=== PATIENT | female | born 1990 | race Caucasian/White ===

== ENCOUNTER 2016-06-23 05:47 | Emergency (ER) | payer OTHER ==
--- NOTE | 2016-06-23 07:29 | DIAGNOSTIC IMAGING REPORT ---
PROCEDURE: CT ABDOMEN/PELVIS W/O CONTRAST INDICATION: FLANK PAIN TECHNIQUE: Axial CT images were obtained through the abdomen and pelvis without IV contrast. Coronal and sagittal reformations were created. COMPARISON: None. FINDINGS: Clear lung bases. Normal sized heart. No hiatal hernia. The unenhanced appearance of the liver, gallbladder, adrenal glands, kidneys, pancreas and spleen is normal. The abdominal aorta is normal in its course and caliber. There are no suspicious calcifications, retroperitoneal adenopathy or masses. The stomach, upper bowel loops, and mesentery are normal. Intact anterior abdominal wall. No free fluid or inflammation. Mild diffuse urinary bladder wall thickening. No significant perivesicular inflammation or stone. The unenhanced appearance of the uterus, ovaries, pelvic vessels, and pelvic bowel loops is normal. Normal appendix. No suspicious calcifications, free pelvic fluid or mass. Intact osseous structures. IMPRESSION: 1. No evidence of obstructive uropathy. 2. Minor urinary bladder wall thickening raising possibility of cystitis or under distention of the urinary bladder. 3. Findings discussed with Dr. Haile in the emergency room. All CT scans at this facility use dose modulation, iterative reconstruction, and/or weight-based dosing when appropriate to reduce radiation dose to as low as reasonably achievable.
--- NOTE | 2016-07-06 00:17 | ED MAR SUMMARY ---
..... Medication Administration Record [facility] [address] [place] [address] Patient: IMAN MANRIQUE Visit ID: [id number] 25y, F Weight: 81.6 kg Height/Length: 63 in BMI: 31.9 ALLERGIES: Penicillins Start 06:28 06/23/2016 Joanne Michaud RArline, Stop 07:37 06/23/2016 Marian Baltazar R.N. Medication Administered: IV NS (SALINE), Dose: IV Fluids, Rate: 1000 mL/hr, Dispensed: 1000 mL bag, Site: #1 right AC. Medication Ordered: IV NS : initial bolus none -, then 1000 mL/hr for X1 (NOW). Given 06:29 06/23/2016 Joanne Michaud R.N. Medication Administered: ZOFRAN [IVP] (ONDANSETRON HCL), Dose: 4 mg IVP over 30 second(s), Site: #1 right AC. Medication Ordered: Zofran IV 4 mg (NOW). Given 06:30 06/23/2016 Joanne Michaud RBeauNBeau Medication Administered: TORADOL [IVP], Dose: 30 mg IVP over 1 minute(s), Site: #1 right AC. Medication Ordered: Toradol IV 30 mg (NOW).
--- NOTE | 2016-07-06 00:17 | ED DISCHARGE INSTRUCTIONS ---
Patient: IMAN MANRIQUE General Instructions VisitID: [id number] [place] [address] 25y, F Registration Date/Time: 06/23/2016 Chronic cystitis. No hematuria present. INSTRUCTIONS Drink plenty of fluids. Your Current Medications: CONTINUE TAKING THE FOLLOWING MEDICATIONS: HydrOXYzine HCl Oral. TraZODone HCl Oral : prn. Zofran Oral : Last: today at 0130. Prescription Medications: Hydrocodone/APAP 5mg/325mg: take 1 to 2 orally every 6 hours as needed for pain. Dispense fifteen (15). No refills. Zofran (orally disintegrating tablets) 4 mg: take 1 orally every 6 hours as needed for nausea and vomiting. Dispense ten (10). No refill. Substitution is permissible. Baclofen 10 mg: take 1 orally every 8 hours. Dispense thirty (30). No refills. Follow-up: Screening today revealed the patient's blood pressure to be in the normal range. Follow-up with: Napoleon Olmedo MD, Urology, , [address] [facility], [address] Follow up in about four days. Call for an appointment. ADDITIONAL INFORMATION Bladder Infection,Female (Adult) A bladder infection ("cystitis" or "UTI") usually causes a constant urge to urinate and a burning when passing urine. Urine may be cloudy, smelly or dark. There may be pain in the lower abdomen. A bladder infection occurs when bacteria from the vaginal area enter the bladder opening (urethra). This can occur from sexual intercourse, wearing tight clothing, dehydration and other factors. Home Care: Drink lots of fluids (at least 6-8 glasses a day, unless you must restrict fluids for other medical reasons). This will force the medicine into your urinary system and flush the bacteria out of your body. Avoid sexual intercourse until your symptoms are gone. Avoid caffeine, alcohol and spicy foods. These can irritate the bladder. A bladder infection is treated with antibiotics. You may also be given Pyridium (generic = phenazopyridine) to reduce the burning sensation. This medicine will cause your urine to become a bright orange color. The orange urine may stain clothing. You may wear a pad or panty-liner to protect clothing. Preventing Future Infections: Always wipe from front to back after a bowel movement. Keep the genital area clean and dry. Drink plenty of fluids each day to avoid dehydration. Both sexual partners should wash before intercourse. Urinate right after intercourse to flush out the bladder. Wear cotton underwear and cotton-lined panty hose; avoid tight-fitting pants. If you are on control pills and are having frequent bladder infections, discuss with your doctor. Follow Up: Return to this facility or see your doctor if ALL symptoms are not gone after three days of treatment. Get Prompt Medical Attention if any of the following occur: Fever of 100.4F (38C) or higher, or as directed by your healthcare provider No improvement by the third day of treatment Increasing back or abdominal pain Repeated vomiting; unable to keep medicine down Weakness, dizziness or fainting Vaginal discharge Pain, redness or swelling in the labia (outer vaginal area) Ondansetron Oral disintegrating tablet What is this medicine? ONDANSETRON (on HANNAH se ana lilia) is used to treat nausea and vomiting caused by chemotherapy. It is also used to prevent or treat nausea and vomiting after surgery. How should I use this medicine? These tablets are made to dissolve in the mouth. Do not try to push the tablet through the foil backing. With dry hands, peel away the foil backing and gently remove the tablet. Place the tablet in the mouth and allow it to dissolve, then swallow. While you may take these tablets with water, it is not necessary to do so. Talk to your osha inspector regarding the use of this medicine in children. Special care may be needed. What side effects may I notice from receiving this medicine? Side effects that you should report to your doctor or health daycare worker as soon as possible: allergic reactions like skin rash, itching or hives, swelling of the face, lips, or tongue breathing problems dizziness fast or irregular heartbeat feeling faint or lightheaded, falls fever and chills swelling of the hands and feet tightness in the chest Side effects that usually do not require medical attention (report to your doctor or health daycare worker if they continue or are bothersome): constipation or diarrhea headache What may interact with this medicine? Do not take this medicine with any of the following medications: -apomorphine -cisapride -dofetilide -dronedarone -pimozide -thioridazine -ziprasidone This medicine may also interact with the following medications: -carbamazepine -phenytoin -rifampicin -tramadol -other medicines that prolong the QT interval (cause an abnormal heart rhythm) What if I miss a dose? If you miss a dose, take it as soon as you can. If it is almost time for your next dose, take only that dose. Do not take double or extra doses. Where should I keep my medicine? Keep out of the reach of children. Store between 2 and 30 degrees C (36 and 86 degrees F). Throw away any unused medicine after the expiration date. What should I tell my health care provider before I take this medicine? They need to know if you have any of these conditions: heart disease history of irregular heartbeat liver disease low levels of magnesium or potassium in the blood an unusual or allergic reaction to ondansetron, granisetron, other medicines, foods, dyes, or preservatives or trying to get breast-feeding What should I watch for while using this medicine? Check with your doctor or health daycare worker as soon as you can if you have any sign of an allergic reaction. You have been given the following additional information: Bladder Infection, Female (Adult) Ondansetron Oral disintegrating tablet (Electronically signed by Anson Haile Dr. 06/23/2016 7:38)
--- NOTE | 2016-07-06 00:17 | ED NURSING NOTES ---
Clinical Report - Nurses [facility] [address] [place] [address] 06/23/2016 5:48 Patient: IMAN MANRIQUE TRIAGE Triage time 05:55. Acuity: LEVEL 4. Chief Complaint: PAINFUL URINATION, URGENCY and FREQUENCY and LOW BACK PAIN. --06:01 Joanne Michaud R.N. 05:55 06/23/16. BP: 122/72. HR: 87. RR: 16. O2 saturation: 97% on room air. Temp: 98 F (oral). Mendez-Luna pain scale: 2/10. --06:01 Joanne Michaud R.N. Weight: 81.6 kg stated. Height/Length: 63 inches Per Patient. BMI: 31.9. --06:00 Joanne Michaud R.N. Medications TraZODone HCl Oral, as needed. --05:58 Joanne Michaud R.N. HydrOXYzine HCl Oral. --05:59 Joanne Michaud R.N. Zofran Oral, last dose today at 0130. --05:59 Joanne Michaud R.N. Allergies Penicillins. --05:58 Joanne Michaud R.N. History Arrived by private vehicle. Primary physician ([facility]). ( Pt has had ankle surgery on Apr 20, states she has had urinary pain since then but today pain got worse.). Onset. (about 3 months ago). No hematuria. 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 PAST MEDICAL HX: Immunizations: up-to-date. Last normal menstrual period was 1 week ago. No contraception. SOCIAL HX: Heavy tobacco smoker (cigarette)- less than 1 pack per day. Regular alcohol use. History of drug use: marijuana. NUTRITIONAL RISK ASSESSMENT: The nutritional risk assessment revealed no deficiencies. --06:01 Joanne Michaud R.N. PROBLEMS: Fibula Fracture. Gastroenteritis. LNMP - Last Normal Menstrual Period. UTI - Urinary Tract Infection. Pyelonephritis. --06:00 Joanne Michaud R.N. ADDITIONAL SURGERIES: Ankle. --06:00 Joanne Michaud R.N. Interventions ID band on patient. To treatment room. --06: Joanne Michaud R.N. PHYSICAL ASSESSMENT Ambulatory to room. GENERAL / NEURO / PSYCH: Alert. Oriented X 4. Appears anxious. HEENT: Mucous membranes are pink. RESPIRATORY: Respirations not labored. CVS: Capillary refill less than 2 seconds. SKIN: Skin is warm and dry. --06: Joanne Michaud R.N. NURSING PROGRESS NOTES Head of bed elevated. Two patient identifiers checked. Call light placed in reach. Side rails up x 1. Bed placed in lowest position. Brakes of bed on. --06: Joanne Michaud R.N. Patient ready for evaluation- chart flagged. --06:01 Joanne Michaud R.N. Patient ID band checked for patient name and birthdate: patient confirmed urine collected with return of yellow-colored urine; sample sent to lab. Specimen labeled in the presence of the patient. --06:05 Joanne Michaud R.N. 06:24 06/23/2016 Site #1 started via IV in the right antecubital space with an 20g angiocath, with aseptic technique; one attempt. Blood drawn: rainbow set. Labeled in the presence of the patient and sent to the lab. Saline lock flushed with saline. --06:24 Prosper Vera R.N. 06:28 06/23/2016 Started bag #1 1000 mL IV Fluids IV NS (Saline); at 1000 mL/hr via site #1 via IV pump. Allergies verified and confirmed 5 rights. IV patency established. IV site checked: no pain, redness, or swelling. IV flushed thoroughly pre- and post-medication administration. --06:30 Joanne Michaud R.N. 06:29 06/23/2016 Zofran (Ondansetron HCl) IVP 4 mg given over 30 second(s) via site #1. Allergies verified and confirmed 5 rights. IV patency established. IV site checked: no pain, redness, or swelling. IV flushed thoroughly pre- and post-medication administration. IVP given by RN. --06:30 Joanne Michaud R.N. 06:30 06/23/2016 Toradol IVP 30 mg given over 1 minute(s) via site #1. Allergies verified and confirmed 5 rights. IV patency established. IV site checked: no pain, redness, or swelling. IV flushed thoroughly pre- and post-medication administration. IVP given by RN. --06:30 Joanne Michaud R.N. 06:54 06/23/16. BP: 96/66. HR: 91. RR: 15. O2 saturation: 97% on room air. Mendez-Luna pain scale: 10. --06:55 Joanne Michaud R.N. Patient informed about reason for wait and about plan of care. Patient waiting for CT results. --06:55 Joanne Michaud R.N. DISPOSITION / DISCHARGE 08:00 06/23/16. BP: 100/40. HR: 77. RR: 18. O2 saturation: 96%. Temp: 98.4 F. Pain level now 08/17. --08:01 Marian Baltazar R.N. Departure time: 07:45 Jun 23 2016. Condition at departure: improved. No learning barriers present. Discharge instructions provided and reviewed with the patient. Reviewed warnings. Reviewed medication(s). Treatments reviewed. Reviewed referrals. Patient and parent verbalized understanding. Written instructions provided in Bengali. The patient was discharged home and accompanied by parent. She left the Emergency Department ambulatory and via private vehicle. Parent driving. --08:01 Marian Baltazar R.N. 07:37 06/23/2016 Site #1 removed upon discharge. Catheter intact. Pressure dressing applied. --08:02 Marian Baltazar R.N. 07:37 06/23/2016 IV Fluids IV NS Discontinued: bag #1 infused upon discharge. Total amount infused: 1000 mL. IV patency established. IV site checked: no pain, redness, or swelling. IV flushed thoroughly. --08:02 Marian Baltazar R.N. Locked/Released at 07/06/2016 0:17 by Joanne Michaud R.N.
--- NOTE | 2016-07-06 00:17 | ED MED RECONCILIATION SUMMARY ---
Patient: IMAN MANRIQUE Medication Reconciliation Report [facility] VisitID: [id number] [address] [place] [address] 25y, F Registration Date/Time: 06/23/2016 Weight: 81.6 kg Height/Length: 63 in. BMI: 31.9 ALLERGIES: Penicillins The patient's Home Medications are listed below: CONTINUE TAKING THE FOLLOWING MEDICATIONS: HydrOXYzine HCl Oral TraZODone HCl Oral Zofran Oral, last dose: today at 0130 The source(s) of the original Home Medication information: Not obtained. The following Medications were given to the patient in the Emergency Department: IV NS IV Fluids bolus 0, then 1000 mL/hr, administered: 06/23/2016 6:28:00 AM Zofran [IVP] IVP 4 mg, administered: 06/23/2016 6:29:00 AM Toradol [IVP] IVP 30 mg, administered: 06/23/2016 6:30:00 AM The following Medications were prescribed to the patient: Hydrocodone/APAP 5mg/325mg: take 1 to 2 orally every 6 hours as needed for pain. Dispense fifteen (15). No refills. -- Anson Haile Dr. Zofran (orally disintegrating tablets) 4 mg: take 1 orally every 6 hours as needed for nausea and vomiting. Dispense ten (10). No refill. Substitution is permissible. -- Anson Haile Dr. Baclofen 10 mg: take 1 orally every 8 hours. Dispense thirty (30). No refills. -- Anson Haile Dr.
--- NOTE | 2016-07-06 00:17 | ED ORDER SUMMARY ---
..... Patient: IMAN MANRIQUE OrderSheet [facility] VisitID: [id number] [address] [place] [address] 25y, F Registration Date/Time: 06/23/2016 ORDER SHEET Weight: 81.6 kg (stated) Allergies: Penicillins GENERAL ORDERS: CBC w Diff Urgent (06:13 06/23/2016 Ismael Fonseca) (Ack 6:15 AMcQuoid ER Tech1) (6:31 RCollier R.N.) CMP Urgent (06:13 06/23/2016 Ismael Fonseca) (Ack 6:15 AMcQuoid ER Tech1) (6:31 RCollier R.N.) UA-Culture if indicated Urgent (06:13 06/23/2016 Ismael Fonseca) (Ack 6:15 AMcQuoid ER Tech1) (6:15 AMcQuoid ER Tech1) Urine Urgent (06:06/23/2016 Ismael Fonseca) (Ack 6:15 AMcQuoid ER Tech1) (6:15 AMcQuoid ER Tech1) CT Abd/Pel wo Cont (Left) Urgent (06:32 06/23/2016 Ismael Fonseca) (Ack 6:46 ALawrence ER Tech1) (6:54 Tamika) MEDICATION ORDERS: IV FLUIDS: IV NS : initial bolus none -, then 1000 mL/hr for X1 (NOW) (06:12 06/23/2016 Ismael Fonseca) (Ack 6:21 RCollier R.N.) (6:30 RCollier R.N.) Toradol IV 30 mg (NOW) (06:12 06/23/2016 Ismael Fonseca) (Ack 6:21 RCollier R.N.) (6:30 RCollier R.N.) Zofran IV 4 mg (NOW) (06:06/23/2016 Ismael Fonseca) (Ack 6:21 RCollier R.N.) (6:30 RCollier R.N.) ORDER SHEET NOTES: [Electronically signed by Anson Haile Dr. (07:38 06/23/2016)] [Electronically signed by Joanne Michaud R.N. (00:17 07/06/2016)] [Electronically locked/signed by Joanne Mihcaud R.N. (00:07/06/2016)]
--- NOTE | 2016-07-06 00:17 | ED MED RECONCILIATION SUMMARY ---
Patient: IMAN MANRIQUE Medication Reconciliation Report [facility] VisitID: [id number] [address] [place] [address] 25y, F Registration Date/Time: 06/23/2016 Weight: 81.6 kg Height/Length: 63 in. BMI: 31.9 ALLERGIES: Penicillins The patient's Home Medications are listed below: CONTINUE TAKING THE FOLLOWING MEDICATIONS: HydrOXYzine HCl Oral TraZODone HCl Oral Zofran Oral, last dose: today at 0130 The source(s) of the original Home Medication information: Not obtained. The following Medications were given to the patient in the Emergency Department: IV NS IV Fluids bolus 0, then 1000 mL/hr, administered: 06/23/2016 6:28:00 AM Zofran [IVP] IVP 4 mg, administered: 06/23/2016 6:29:00 AM Toradol [IVP] IVP 30 mg, administered: 06/23/2016 6:30:00 AM The following Medications were prescribed to the patient: Hydrocodone/APAP 5mg/325mg: take 1 to 2 orally every 6 hours as needed for pain. Dispense fifteen (15). No refills. -- Anson Haile Dr. Zofran (orally disintegrating tablets) 4 mg: take 1 orally every 6 hours as needed for nausea and vomiting. Dispense ten (10). No refill. Substitution is permissible. -- Anson Haile Dr. Baclofen 10 mg: take 1 orally every 8 hours. Dispense thirty (30). No refills. -- Anson Haile Dr.
--- NOTE | 2016-07-06 00:17 | ED CLINICAL REPORT ---
Clinical Report - Physicians/Mid Levels [facility] [address] [place] [address] 06/23/2016 5:48 Patient: IMAN MANRIQUE Time Seen: 0557; initial patient contact. Arrived- By private vehicle. Historian- patient. HISTORY OF PRESENT ILLNESS Chief Complaint: ABDOMINAL PAIN and FLANK PAIN. At its maximum, severity described as moderate. When seen in the E.D., severity described as moderate. Modifying factors. Not worsened by anything. Not relieved by anything. This started today and is still present. It was abrupt in onset. It is described as sharp and it is described as located in the left pelvis and the left flank and radiating to the groin. The patient has had nausea. No loss of appetite, vomiting or diarrhea. Similar symptoms previously: None. Recent medical care: Not recently seen/assessed. REVIEW OF SYSTEMS No constipation, difficulty with urination, urinary frequency, missed periods or fever. No chills. She has had pain on urination. All systems otherwise negative, except as recorded above. PAST HISTORY Fibula Fracture. Gastroenteritis. UTI - Urinary Tract Infection. Pyelonephritis. SURGERIES: Ankle. Medications: Zofran Oral, last dose today at 0130. HydrOXYzine HCl Oral. TraZODone HCl Oral, as needed. Allergies: Penicillins. SOCIAL HISTORY Current every day smoker. Regular alcohol use. History of drug use: marijuana. ADDITIONAL NOTES The nursing notes have been reviewed with agreement regarding the chief complaint, PMH and patient medications and allergies. PHYSICAL EXAM Vital Signs: 06/23/2016 05:55 BP: 122/72. HR: 87. RR: 16. O2 saturation: 97%. Temp: 98 F. Mendez-Luna pain scale: 2/10. Have been reviewed as normal. Appearance: Alert. Oriented X3. No acute distress. ENT: Dry mucous membranes present. CVS: Normal heart rate and rhythm. Heart sounds normal. Respiratory: No respiratory distress. Breath sounds normal. Abdomen: Soft. Moderate tenderness in the left side of the abdomen with guarding present. No rebound tenderness. Bowel sounds normal. No mass. Back: Moderate CVA tenderness on the left. Skin: Normal skin color. Neuro: Oriented X 3. LABS, X-RAYS, AND EKG Abdominal CT: 1. No evidence of obstructive uropathy. 2. Minor urinary bladder wall thickening raising possibility of cystitis or under distention of the urinary bladder. Study type: renal stone evaluation. Abdominal CT performed without contrast. Prior studies were not available for comparison. The study was interpreted by the radiologist and discussed with the radiologist. Interpretation time: 07:32. Laboratory Tests: UA-Culture if indicated: (KASSIDY: 06/23/2016 06:00) ( [facility] 06/23/2016 06:45) Final results Test Result Flag Units (Reference) URINE COLOR YELLOW URINE APPEARANCE CLEAR URINE GLUCOSE NEGATIVE (NEGATIVE) URINE BILIRUBIN NEGATIVE (NEGATIVE) URINE KETONE NEGATIVE (NEGATIVE) URINE SPECIFIC GRAVITY <= 1.005 L (1.010-1.030) URINE PH 7.0 (5.0-8.0) URINE PROTEIN NEGATIVE (NEGATIVE) URINE UROBILINOGEN 0.2 EU/dL (0.2-1.0) URINE NITRITE NEGATIVE (NEGATIVE) URINE BLOOD NEGATIVE (NEGATIVE) URINE LEUK ESTERASE NEGATIVE (NEGATIVE) URINE RBC 0-1 rbc/hpf (0-1) URINE WBC 0-1 wbc/hpf (0-1) URINE EPITHELIAL CELLS 0-1 EPI/hpf (0-5) URINE BACTERIA TRACE (<1+) (NONE SEEN) URINE COMMENT CULT NOT INDICATED URINE CULTURES ARE SET-UP BASED ON THE FOLLOWING CRITERIA:POSITIVE NITRITEPOSITIVE LEUKOCYTE ESTERASEGREATER THAN 10 WHITE BLOOD CELLSMODERATE (2+) OR GREATER BACTERIA Urine: (KASSIDY: 06/23/2016 06:00) ( [facility] 06/23/2016 06:26) Final results Test Result Flag Units (Reference) URINE NEGATIVE CBC w Diff: (KASSIDY: 06/23/2016 06:20) ( [facility] 06/23/2016 06:35) Final results Test Result Flag Units (Reference) WHITE BLOOD COUNT 7.9 K/uL (4.5-11.5) RED BLOOD COUNT 4.35 M/uL (4.00-5.20) HEMOGLOBIN 14.1 gm/dL (12.0-16.0) HEMATOCRIT 39.5 % (36.0-46.0) MEAN CELL VOLUME 91 fL (80-100) MEAN CORPUSCULAR HGB 32 pg (26-34) MEAN CORPUSCULAR HGB CONC 36 g/dL (31-37) RED CELL DISTRIBUTION WIDTH 12.7 % (11.6-14.8) PLATELET COUNT 296 K/uL (150-400) NEUTROPHIL % 74.5 % (50-75) LYMPH % 19.3 L % (25-40) MONO % 4.4 % (3-14) EOSINOPHIL % 1.4 % (0-4) BASOPHIL % 0.4 % (0-2) CMP: (KASSIDY: 06/23/2016 06:20) ( MsgRcvd 06/23/2016 07:11) Final results Test Result Flag Units (Reference) GLUCOSE 113 H mg/dL (70-110) BUN 4 L mg/dL (7-18) CREATININE 0.7 mg/dL (0.6-1.3) Estimated GFR >60 mL/min Estimated GFR- >60 mL/min Note: Persistent reduction over 3 months in eGFR<60 mL/min/1.73 m2 defines CKD. Patients with eGFR values>=60 mL/min/1.73 m2 may also have CKD if evidence ofpersistent proteinuria. Additional information may be foundat www.kidney.org. SODIUM 146 H mmol/L (136-145) POTASSIUM 3.5 mmol/L (3.5-5.1) CHLORIDE 106 mmol/L (98-107) CARBON DIOXIDE 26 mmol/L (21-32) CALCIUM 8.3 L mg/dL (8.5-10.1) TOTAL PROTEIN 7.7 g/dL (6.4-8.2) ALBUMIN 4.1 g/dL (3.3-5.0) BILIRUBIN, TOTAL 0.5 mg/dL (0.0-1.0) ALKALINE PHOSPHATASE 67 U/L (46-116) AST (SGOT) 14 L U/L (15-37) ALT (SGPT) 23 U/L (12-78) . CLINICAL IMPRESSION Chronic cystitis. No hematuria present. INSTRUCTIONS Drink plenty of fluids. Your Current Medications: CONTINUE TAKING THE FOLLOWING MEDICATIONS: HydrOXYzine HCl Oral. TraZODone HCl Oral : prn. Zofran Oral : Last: today at 0130. Prescription Medications: Hydrocodone/APAP 5mg/325mg: take 1 to 2 orally every 6 hours as needed for pain. Dispense fifteen (15). No refills. Zofran (orally disintegrating tablets) 4 mg: take 1 orally every 6 hours as needed for nausea and vomiting. Dispense ten (10). No refill. Substitution is permissible. Baclofen 10 mg: take 1 orally every 8 hours. Dispense thirty (30). No refills. Follow-up: Screening today revealed the patient's blood pressure to be in the normal range. Follow-up with: Napoleon Olmedo MD, Urology, , [address] [facility] [address] Follow up in about four days. Call for an appointment. (Electronically signed by Anson Haile Dr. 06/23/2016 7:38)
--- NOTE | 2016-07-06 00:17 | ED MAR SUMMARY ---
..... Medication Administration Record [facility] [address] [place] [address] Patient: IMAN MANRIQUE Visit ID: [id number] 25y, F Weight: 81.6 kg Height/Length: 63 in BMI: 31.9 ALLERGIES: Penicillins Start 06:28 06/23/2016 Joanne Michaud RArline, Stop 07:37 06/23/2016 Marian Baltazar R.N. Medication Administered: IV NS (SALINE), Dose: IV Fluids, Rate: 1000 mL/hr, Dispensed: 1000 mL bag, Site: #1 right AC. Medication Ordered: IV NS : initial bolus none -, then 1000 mL/hr for X1 (NOW). Given 06:29 06/23/2016 Joanne Michaud R.N. Medication Administered: ZOFRAN [IVP] (ONDANSETRON HCL), Dose: 4 mg IVP over 30 second(s), Site: #1 right AC. Medication Ordered: Zofran IV 4 mg (NOW). Given 06:30 06/23/2016 Joanne Michaud RBeauNBeau Medication Administered: TORADOL [IVP], Dose: 30 mg IVP over 1 minute(s), Site: #1 right AC. Medication Ordered: Toradol IV 30 mg (NOW).
--- NOTE | 2016-07-06 00:17 | ED DISCHARGE INSTRUCTIONS ---
Patient: IMAN MARNIQUE General Instructions [facility] VisitID: [id number] [place] [address] 25y, F Registration Date/Time: 06/23/2016 Chronic cystitis. No hematuria present. INSTRUCTIONS Drink plenty of fluids. Your Current Medications: CONTINUE TAKING THE FOLLOWING MEDICATIONS: HydrOXYzine HCl Oral. TraZODone HCl Oral : prn. Zofran Oral : Last: today at 0130. Prescription Medications: Hydrocodone/APAP 5mg/325mg: take 1 to 2 orally every 6 hours as needed for pain. Dispense fifteen (15). No refills. Zofran (orally disintegrating tablets) 4 mg: take 1 orally every 6 hours as needed for nausea and vomiting. Dispense ten (10). No refill. Substitution is permissible. Baclofen 10 mg: take 1 orally every 8 hours. Dispense thirty (30). No refills. Follow-up: Screening today revealed the patient's blood pressure to be in the normal range. Follow-up with: Napoleon Olmedo MD, Urology, , [address] [facility], [id number] Follow up in about four days. Call for an appointment. ADDITIONAL INFORMATION Bladder Infection,Female (Adult) A bladder infection ("cystitis" or "UTI") usually causes a constant urge to urinate and a burning when passing urine. Urine may be cloudy, smelly or dark. There may be pain in the lower abdomen. A bladder infection occurs when bacteria from the vaginal area enter the bladder opening (urethra). This can occur from sexual intercourse, wearing tight clothing, dehydration and other factors. Home Care: Drink lots of fluids (at least 6-8 glasses a day, unless you must restrict fluids for other medical reasons). This will force the medicine into your urinary system and flush the bacteria out of your body. Avoid sexual intercourse until your symptoms are gone. Avoid caffeine, alcohol and spicy foods. These can irritate the bladder. A bladder infection is treated with antibiotics. You may also be given Pyridium (generic = phenazopyridine) to reduce the burning sensation. This medicine will cause your urine to become a bright orange color. The orange urine may stain clothing. You may wear a pad or panty-liner to protect clothing. Preventing Future Infections: Always wipe from front to back after a bowel movement. Keep the genital area clean and dry. Drink plenty of fluids each day to avoid dehydration. Both sexual partners should wash before intercourse. Urinate right after intercourse to flush out the bladder. Wear cotton underwear and cotton-lined panty hose; avoid tight-fitting pants. If you are on control pills and are having frequent bladder infections, discuss with your doctor. Follow Up: Return to this facility or see your doctor if ALL symptoms are not gone after three days of treatment. Get Prompt Medical Attention if any of the following occur: Fever of 100.4F (38C) or higher, or as directed by your healthcare provider No improvement by the third day of treatment Increasing back or abdominal pain Repeated vomiting; unable to keep medicine down Weakness, dizziness or fainting Vaginal discharge Pain, redness or swelling in the labia (outer vaginal area) Ondansetron Oral disintegrating tablet What is this medicine? ONDANSETRON (on HANNAH se ana lilia) is used to treat nausea and vomiting caused by chemotherapy. It is also used to prevent or treat nausea and vomiting after surgery. How should I use this medicine? These tablets are made to dissolve in the mouth. Do not try to push the tablet through the foil backing. With dry hands, peel away the foil backing and gently remove the tablet. Place the tablet in the mouth and allow it to dissolve, then swallow. While you may take these tablets with water, it is not necessary to do so. Talk to your silo operator regarding the use of this medicine in children. Special care may be needed. What side effects may I notice from receiving this medicine? Side effects that you should report to your doctor or health overnight caregiver as soon as possible: allergic reactions like skin rash, itching or hives, swelling of the face, lips, or tongue breathing problems dizziness fast or irregular heartbeat feeling faint or lightheaded, falls fever and chills swelling of the hands and feet tightness in the chest Side effects that usually do not require medical attention (report to your doctor or health overnight caregiver if they continue or are bothersome): constipation or diarrhea headache What may interact with this medicine? Do not take this medicine with any of the following medications: -apomorphine -cisapride -dofetilide -dronedarone -pimozide -thioridazine -ziprasidone This medicine may also interact with the following medications: -carbamazepine -phenytoin -rifampicin -tramadol -other medicines that prolong the QT interval (cause an abnormal heart rhythm) What if I miss a dose? If you miss a dose, take it as soon as you can. If it is almost time for your next dose, take only that dose. Do not take double or extra doses. Where should I keep my medicine? Keep out of the reach of children. Store between 2 and 30 degrees C (36 and 86 degrees F). Throw away any unused medicine after the expiration date. What should I tell my health care provider before I take this medicine? They need to know if you have any of these conditions: heart disease history of irregular heartbeat liver disease low levels of magnesium or potassium in the blood an unusual or allergic reaction to ondansetron, granisetron, other medicines, foods, dyes, or preservatives or trying to get breast-feeding What should I watch for while using this medicine? Check with your doctor or health overnight caregiver as soon as you can if you have any sign of an allergic reaction. You have been given the following additional information: Bladder Infection, Female (Adult) Ondansetron Oral disintegrating tablet (Electronically signed by Anson Haile Dr. 06/23/2016 7:38)
--- NOTE | 2016-07-06 00:17 | ED NURSING NOTES ---
Clinical Report - Nurses [facility] [address] [place] [address] 06/23/2016 5:48 Patient: IMAN MANRIUQE TRIAGE Triage time 05:55. Acuity: LEVEL 4. Chief Complaint: PAINFUL URINATION, URGENCY and FREQUENCY and LOW BACK PAIN. --06:01 Joanne Michaud R.N. 05:55 06/23/16. BP: 122/72. HR: 87. RR: 16. O2 saturation: 97% on room air. Temp: 98 F (oral). Mendez-Luna pain scale: 2/10. --06:01 Joanne Michaud R.N. Weight: 81.6 kg stated. Height/Length: 63 inches Per Patient. BMI: 31.9. --06:00 Joanne Michaud R.N. Medications TraZODone HCl Oral, as needed. --05:58 Joanne Michaud R.N. HydrOXYzine HCl Oral. --05:59 Joanne Michaud R.N. Zofran Oral, last dose today at 0130. --05:59 Joanne Michaud R.N. Allergies Penicillins. --05:58 Joanne Michaud R.N. History Arrived by private vehicle. Primary physician ([facility]). ( Pt has had ankle surgery on Apr 20, states she has had urinary pain since then but today pain got worse.). Onset. (about 3 months ago). No hematuria. Treatment GENERAL FARM MANAGER: None. PAST MEDICAL HX: Immunizations: up-to-date. Last normal menstrual period was 1 week ago. No contraception. SOCIAL HX: Heavy tobacco smoker (cigarette)- less than 1 pack per day. Regular alcohol use. History of drug use: marijuana. NUTRITIONAL RISK ASSESSMENT: The nutritional risk assessment revealed no deficiencies. --06:01 Joanne Michaud R.N. PROBLEMS: Fibula Fracture. Gastroenteritis. LNMP - Last Normal Menstrual Period. UTI - Urinary Tract Infection. Pyelonephritis. --06:00 Joanne Michaud R.N. ADDITIONAL SURGERIES: Ankle. --06:00 Joanne Michaud R.N. Interventions ID band on patient. To treatment room. --06: Joanne Michaud R.N. PHYSICAL ASSESSMENT Ambulatory to room. GENERAL / NEURO / PSYCH: Alert. Oriented X 4. Appears anxious. HEENT: Mucous membranes are pink. RESPIRATORY: Respirations not labored. CVS: Capillary refill less than 2 seconds. SKIN: Skin is warm and dry. --06: Joanne Michaud R.N. NURSING PROGRESS NOTES Head of bed elevated. Two patient identifiers checked. Call light placed in reach. Side rails up x 1. Bed placed in lowest position. Brakes of bed on. --06: Joanne Michaud R.N. Patient ready for evaluation- chart flagged. --06:01 Joanne Michaud R.N. Patient ID band checked for patient name and birthdate: patient confirmed urine collected with return of yellow-colored urine; sample sent to lab. Specimen labeled in the presence of the patient. --06:05 Joanne Michaud R.N. 06:24 06/23/2016 Site #1 started via IV in the right antecubital space with an 20g angiocath, with aseptic technique; one attempt. Blood drawn: rainbow set. Labeled in the presence of the patient and sent to the lab. Saline lock flushed with saline. --06:24 Prosper Vera R.N. 06:28 06/23/2016 Started bag #1 1000 mL IV Fluids IV NS (Saline); at 1000 mL/hr via site #1 via IV pump. Allergies verified and confirmed 5 rights. IV patency established. IV site checked: no pain, redness, or swelling. IV flushed thoroughly pre- and post-medication administration. --06:30 Joanne Michaud R.N. 06:29 06/23/2016 Zofran (Ondansetron HCl) IVP 4 mg given over 30 second(s) via site #1. Allergies verified and confirmed 5 rights. IV patency established. IV site checked: no pain, redness, or swelling. IV flushed thoroughly pre- and post-medication administration. IVP given by RN. --06:30 Joanne Michaud R.N. 06:30 06/23/2016 Toradol IVP 30 mg given over 1 minute(s) via site #1. Allergies verified and confirmed 5 rights. IV patency established. IV site checked: no pain, redness, or swelling. IV flushed thoroughly pre- and post-medication administration. IVP given by RN. --06:30 Joanne Michaud R.N. 06:54 06/23/16. BP: 96/66. HR: 91. RR: 15. O2 saturation: 97% on room air. Mendez-Luna pain scale: 10. --06:55 Joanne Michaud R.N. Patient informed about reason for wait and about plan of care. Patient waiting for CT results. --06:55 Joanne Michaud R.N. DISPOSITION / DISCHARGE 08:00 06/23/16. BP: 100/40. HR: 77. RR: 18. O2 saturation: 96%. Temp: 98.4 F. Pain level now 08/17. --08:01 Marian Baltazar R.N. Departure time: 07:45 Jun 23 2016. Condition at departure: improved. No learning barriers present. Discharge instructions provided and reviewed with the patient. Reviewed warnings. Reviewed medication(s). Treatments reviewed. Reviewed referrals. Patient and parent verbalized understanding. Written instructions provided in Kazakh. The patient was discharged home and accompanied by parent. She left the Emergency Department ambulatory and via private vehicle. Parent driving. --08:01 Marian Baltazar R.N. 07:37 06/23/2016 Site #1 removed upon discharge. Catheter intact. Pressure dressing applied. --08:02 Marian Baltazar R.N. 07:37 06/23/2016 IV Fluids IV NS Discontinued: bag #1 infused upon discharge. Total amount infused: 1000 mL. IV patency established. IV site checked: no pain, redness, or swelling. IV flushed thoroughly. --08:02 Marian Baltazar R.N. Locked/Released at 07/06/2016 0:17 by Joanne Michaud R.N.
--- NOTE | 2016-07-06 00:17 | ED ORDER SUMMARY ---
..... Patient: IMAN MANRIQUE OrderSheet [facility] VisitID: [id number] [address] [place] [address] 25y, F Registration Date/Time: 06/23/2016 ORDER SHEET Weight: 81.6 kg (stated) Allergies: Penicillins GENERAL ORDERS: CBC w Diff Urgent (06:13 06/23/2016 Ismael Fonseca) (Ack 6:15 AMcQuoid ER Tech1) (6:31 RCollier R.N.) CMP Urgent (06:13 06/23/2016 Ismael Fonseca) (Ack 6:15 AMcQuoid ER Tech1) (6:31 RCollier R.N.) UA-Culture if indicated Urgent (06:13 06/23/2016 Ismael Fonseca) (Ack 6:15 AMcQuoid ER Tech1) (6:15 AMcQuoid ER Tech1) Urine Urgent (06:06/23/2016 Ismael Fonseca) (Ack 6:15 AMcQuoid ER Tech1) (6:15 AMcQuoid ER Tech1) CT Abd/Pel wo Cont (Left) Urgent (06:32 06/23/2016 Ismael Fonseca) (Ack 6:46 ALawrence ER Tech1) (6:54 Tamika) MEDICATION ORDERS: IV FLUIDS: IV NS : initial bolus none -, then 1000 mL/hr for X1 (NOW) (06:12 06/23/2016 Ismael Fonseca) (Ack 6:21 RCollier R.N.) (6:30 RCollier R.N.) Toradol IV 30 mg (NOW) (06:12 06/23/2016 Ismael Fonseca) (Ack 6:21 RCollier R.N.) (6:30 RCollier R.N.) Zofran IV 4 mg (NOW) (06:06/23/2016 Ismael Fonseca) (Ack 6:21 RCollier R.N.) (6:30 RCollier R.N.) ORDER SHEET NOTES: [Electronically signed by Anson Haile Dr. (07:38 06/23/2016)] [Electronically signed by Joanne Michaud R.N. (00:17 07/06/2016)] [Electronically locked/signed by Joanne Michaud R.N. (00:07/06/2016)]
== END 2016-06-23 07:45 | disposition home or self-care (01) ==
LOC: ED SRH 05:47
DX: N30.20 Other chronic cystitis without hematuria (principal); F17.210 Nicotine dependence, cigarettes, uncomplicated; Z79.899 Other long term (current) drug therapy; Z88.0 Allergy status to penicillin
CPT/HCPCS: 90004; 90100; 93070; 95059